=== PATIENT | male | born 1945 | race Caucasian/White ===

== ENCOUNTER → 2017-12-13 | Outpatient (CLI) | payer OTHER, MEDICARE ==
[~2017-12-13] MED LIST: GADOBUTROL 10 MMOL/10 ML VIAL ONE
== END | disposition home or self-care (01) ==
LOC: CFH 09:50
PROVIDERS: ATTEND Neurological Surgery
DX: I67.82 Cerebral ischemia (principal); R90.82 White matter disease, unspecified; D35.2 Benign neoplasm of pituitary gland
CPT/HCPCS: 70553; A9585